=== PATIENT | female | born 1945 | race Native Hawaiian/Other Pacific Islander ===

== ENCOUNTER → 2022-12-11 | Emergency (ER) | payer OTHER, MEDICARE ==
[~2022-12-11] VITALS: Ht 162.6 cm; Wt 56.7 kg
[~2022-12-11] MED LIST: APIX1TAB PO; Atorvastatin Calcium PO; BUDE1AER5 INH; BUSP5TAB2 PO; BUSPIRONE10 MG PO; COZAAR25 MG PO; ELIQUIS5 MG PO; HUMULIN R100 UNIT/M; IPRAAER INH; K-TABS10 MEQ PO; LIPITOR40 MG PO; LOPE2CAP17 PO; LORA2INJ21 INJ; LOSA50TA PO; MACROBID100 MG PO; MEGE40TA32 PO; METO-837 PO; METO25TA4 PO; MULTIVITAMIN1 TA1 PO; POTA10CA3 PO; QUET25TA2 PO; QUETIAPINE25 MG PO; THIA100T8 PO; VITAMIN C100 MG PO; VITAMIN D2000 UNI2 PO
[2022-12-11 23:24] VITALS: TEMP 98.9
[2022-12-11 23:53] LABS: POTASSIUM 3.9 mmol/L (3.6-5.2)
[2022-12-12 00:51] LABS: PLATELET COUNT 246 K/uL (152-353)
[2022-12-12 01:53] VITALS: BP 137/83
== END ==
LOC: ED 23:23
PROVIDERS: Family Medicine
DX: Z04.6 Encounter for general psychiatric examination, requested by authority (principal); G30.9 Alzheimer's disease, unspecified; F02.811 Dementia in other diseases classified elsewhere, unspecified severity, with agitation; J44.9 Chronic obstructive pulmonary disease, unspecified; N18.9 Chronic kidney disease, unspecified; E11.22 Type 2 diabetes mellitus with diabetic chronic kidney disease; I48.91 Unspecified atrial fibrillation; Z20.822 Contact with and (suspected) exposure to COVID-19; N39.0 Urinary tract infection, site not specified; I49.9 Cardiac arrhythmia, unspecified
CPT/HCPCS: 80053; 81000; 81002; 85027; 87077; 87086; 87088; 87186; 87635; 93005; 96360; 99284; J3490; U0003